=== PATIENT | female | born 1985 | race Caucasian/White ===

== ENCOUNTER 2017-06-23 17:07 | Emergency (ER) | payer BC ==
[2017-06-23 18:22] VITALS: BP 106/63
--- NOTE | 2017-06-23 19:02 | UC ---
Lower Extremity/Ankle HPI - HPI Summary HPI Summary: 32 year old with foot pain. large toe right with round erythemic, painful, and swollen area with yellowish thickened calloused center on pedal lateral aspect of left great toe worsening over a few months. Pain aggravated by touch. Concerned about possible glass FB. 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 [ End ] - History of Current Complaint Chief Complaint: UCSkin Stated Complaint: GREAT TOE COMPLAINT Time Seen by Provider: 06/23/17 18:47 Hx Obtained From: Patient Hx Last Menstrual Period: 05/29/17 Onset/Duration: Gradual Onset Severity Initially: Mild Severity Currently: Moderate Able to Bear Weight: Yes - Allergies/Home Medications Allergies/Adverse Reactions: Allergies Allergy/AdvReac Type Severity Reaction Status Date / Time No Known Allergies Allergy Verified 06/23/17 18:18 Home Medications: Home Medications Bupropion XL* [Wellbutrin XL *] 300 mg PO DAILY 06/23/17 [History Confirmed ] Levonorgestrel & Eth Estradiol [Falmina 0.1-20 mg-Mcg] 1 tab PO DAILY 06/23/17 [ History Confirmed 06/23/17] PMH/Surg Hx/FS Hx/Imm Hx Previously Healthy: Yes - Surgical History Surgical History: Yes Surgery Procedure, Year, and Place: WISDOM TEETH EXTRACTIONS JUL 2014. RIGHT WRIST GANGIONECTOMY - Family History Known Family History: Positive: Cardiac Disease Negative: Hypertension - Social History Occupation: Employed Full-time - teacher Alcohol Use: Rare Substance Use Type: None Smoking Status (MU): Never Smoked Tobacco - Immunization History Most Recent Influenza Vaccination: Not the 2017/2017 Season Most Recent Tetanus Shot: "I actually have no idea." Review of Systems Skin: Other - large toe with pain and redness All Other Systems Reviewed And Are Negative: Yes Physical Exam Triage Information Reviewed: Yes Appearance: Well-Appearing, Pain Distress - mild Vital Signs: Initial Vital Signs Temp 98.6 F 06/23/17 18:16 Pulse 70 06/23/17 18:16 Resp 16 06/23/17 18:16 BP 106/63 06/23/17 18:16 Pulse Ox 100 09/22/17 18:16 Vital Signs Reviewed: Yes Respiratory Exam: Normal Cardiovascular Exam: Normal Musculoskeletal Exam: Normal Neurological Exam: Normal Psychological Exam: Normal Skin: Positive: Other - right large toe with callous thickened area laterally, there is some mildly reddened area around the callous and affects almost the whole dorsal aspect of the toe. no pulp tenderness . no discharge or fluctuance cap refill < 3 sec peripheral pulses intact and brisk. FROM of the toe and all toes . rest of the foot exam WNL Lower Extremity Course/Dx - Course Course Of Treatment: advise soak TID, start keflex, if Sx worsen then RTO . no abscess to I&D -- appears to be irritated corn/callous , aware of SE of meds -- refer to podiatry for treatment at this time - Differential Dx/Diagnosis Differential Diagnosis/HQI/PQRI: Foreign Body, Infection Provider Diagnoses: Large toe infection right Discharge - Discharge Plan Condition: Good Disposition: HOME Prescriptions: Cephalexin CAP* [Keflex 500 CAP*] 500 mg PO TID #30 cap Patient Education Materials: Cellulitis (ED) Referrals: Fabricio Lemons MD [Primary Care Provider] - 3 Days Hollis Huerta DPM [Doctor of Podiatric Medicine] - 4 Days (Podiatry referral ) Additional Instructions: As we discussed we advise use soak the foot, use Dr Wong's [place]/Callous treatment and start antibiotics to ensure the redness does not spread.
--- NOTE | 2017-06-23 19:24 | RAD ---
INDICATION: Pain and swelling at the plantar surface of the right great toe TECHNIQUE: 3 views of the right great toe were obtained. FINDINGS: The visualized bones are normal alignment. Joint spaces appear maintained. No fracture is seen. IMPRESSION: NO EVIDENCE FOR FRACTURE. IF THE PATIENT'S SYMPTOMS PERSIST RECOMMEND FOLLOW-UP IMAGING.
== END 2017-06-23 19:34 | disposition home or self-care (01) ==
LOC: UCCORT 17:07
DX: L08.9 Local infection of the skin and subcutaneous tissue, unspecified (principal)
CPT/HCPCS: 99212; G0463